=== PATIENT | female | born 1975 | race Caucasian/White ===

== ENCOUNTER → 2021-12-21 11:07 | Outpatient (BNVA) | payer OTHER, SELFPAY | PROVIDERS: Visit Provider Family Medicine | DX: Z01.812 Encounter for preprocedural laboratory examination (principal); Z20.822 Contact with and (suspected) exposure to COVID-19 | CPT/HCPCS: 87635 ==

== ENCOUNTER 2023-01-30 18:39 | Emergency (ER) | payer OTHER, SELFPAY ==
[2023-01-30 18:49] VITALS: BP 155/95; PULSE 80; RESP 16; TEMP 36.8; O2SAT 98; BMI 22.1
--- NOTE | 2023-01-30 19:35 | W.ED.FEMALGU ---
HPI - Female Genitourinary General: Chief complaint: Urogenital-Female Stated complaint: Vaginal Bleeding Time Seen by Provider: 01/30/23 18:57 Source: patient Mode of arrival: ambulatory Limitations: no limitations History of Present Illness: Patient presents to the emergency department today for evaluation treatment of bleeding with urination and low pelvic pressure. Patient states that just this afternoon she noticed a little bit of spotting when she would urinate. It quickly progressed and patient is having large amounts of bright red urine with voiding and significant urinary discomfort. She states she looked in the vaginal region and notes that her urethra appears very red and swollen. Patient only has bleeding when she urinates and denies any bleeding in her underwear. She denies any specific back pains, fevers, nausea or vomiting. Patient has no history of prolapse. Associated symptoms: Reports abdominal pain (low, suprapubic) Review of Systems General: Reports: 10 or more systems reviewed and unremarkable except in HPI and below GI: Reports: abdominal pain (low, suprapubic) : Reports: dysuria and hematuria Physical Exam Const: COMMON NORMALS: no acute distress, patient oriented x3 and alert HENMT: COMMON NORMALS: normocephalic, atraumatic, hearing grossly normal bilaterally and moist oral mucous membranes HEAD & SCALP: normocephalic and atraumatic Eye: COMMON NORMALS: Equal, round and reactive pupils present, EOMs intact bilaterally and conjunctivae normal CONJUNCTIVA: Yes conjunctivae normal PUPIL: Yes Equal, round and reactive pupils present Neck/C-Spine: COMMON NORMALS: full ROM and no JVD Lymph: LYMPHATIC: no lymphadenopathy noted Resp: COMMON NORMALS: normal respiratory effort, No retractions, No use of accessory muscles and clear to auscultation bilaterally AUSCULTATION: clear to auscultation bilaterally Cardio: COMMON NORMALS: no JVD, regular rate and regular rhythm RATE: regular rate RHYTHM: regular rhythm GI: OTHER: Patient has some mild tenderness on deep suprapubic palpation. Otherwise, nontender, normoactive bowel sounds. Abdomen is soft. : COMMON NORMALS: Yes no CVA tenderness BLADDER/KIDNEY EXAM: Yes no CVA tenderness OTHER: exam discussed/offered but not pursued by the patient and was deferred Back/Pelvis: COMMON NORMALS: no CVA tenderness, no thoracic nor lumbar tenderness and thoraco-lumbar ROM normal Extremity: COMMON NORMALS: normal to inspection, full ROM and capillary refill normal Neuro: COMMON NORMALS: patient oriented x3 SENSORIUM/ORIENTATION: Yes alert Psych: COMMON NORMALS: mental status grossly normal, Normal thought process present, cooperative, normal affect and activity/motor behavior normal THOUGHT PROCESS: Normal thought process present Skin: COMMON NORMALS: no rashes or lesions noted and no wounds GENERAL SKIN EXAM: no rashes or lesions noted Course Vital Signs: Vital signs: Vital Signs Temperature 98.2 F 01/30/23 18:49 Pulse Rate 80 01/30/23 18:49 Respiratory Rate 16 01/30/23 18:49 Blood Pressure 155/95 01/30/23 18:49 Pulse Oximetry 98 01/30/23 18:49 Oxygen Delivery Me thod 01/30/23 18:49 MDM - Female Medical Decision Making Patient presents to the ED today for worsening of hematuria. Urinalysis confirmed significant amount of blood in the urine but, no acute findings of infection. Patient is nitrite negative and only trace leukocyte Estrace. Only trace bacteria. I did discuss the case with Dr. Olivas who agrees infection is most likely not the cause of the patient's symptoms though I did encourage continuing with the urine culture that was ordered. Follow-up with urology was requested through case management. Explained to the patient that she most likely needs a cystoscopy to visualize inside her bladder. I did explain that she may have an area of bleeding in the bladder or, there may be a lesion that requires further evaluation by urology. Patient was encouraged to increase her clear fluids and, patient was provided PeriCare bottle to help with discomfort while she urinates. Discussed any urinary retention needs to be seen and evaluated here in the emergency department as it is possible her urinary clots could occlude her bladder. Differential Diagnosis Likely abdominal pain, calculus of kidney (UTI) and constipation Lab Data Laboratory Results Urine Color Red (Yellow) 01/30/23 19:13 Urine Appearance Cloudy (CLEAR) A 01/30/23 19:13 Urine pH 7 (5-7) 01/30/23 19:13 Ur Specific [place] 1.010 (1.005-1.030) 01/30/23 19:13 Urine Protein 1+ (Negative) H 01/30/23 19:13 Urine Glucose (UA) Norm (Normal) 01/30/23 19:13 Urine Ketones Negative (Negative) 01/30/23 19:13 Urine Blood 3+ (Negative) H 01/30/23 19:13 Urine Nitrate Negative (Negative) 01/30/23 19:13 Urine Bilirubin Neg (Negative) 01/30/23 19:13 Prot Sulfosalicylic Acd Negative (Negative) 01/30/23 19:13 Urine Urobilinogen Neg mg/dL (Negative) 01/30/23 19:13 Ur Leukocyte Esterase Trace (Negative) H 01/30/23 19:13 Urine RBC Too numerous to cnt /hpf (0-2) H 01/30/23 19:13 Urine WBC 15-25 /hpf (0-5) H 01/30/23 19:13 Ur Squamous Epith Cells 0-4 /hpf (0-5) H 01/30/23 19:13 Amorphous Sediment Not Reportable 01/30/23 19:13 Urine Bacteria Trace /hpf (NONE) 01/30/23 19:13 Urine HCG, Qual Negative (Negative) 01/30/23 19:13 Discharge Plan Discharge Patient Disposition: Home Clinical Impression: Hematuria Condition: Stable Discharge Orders: Discharge ED (Routine); Ordered 01/30/23 Ordered By: Marina Kent Discharge Diet: Usual diet Discharge Activity: Increase activity as tolerated Patient Instructions: Hematuria - Female Activity Restrictions/Additional Instructions: The emergency room physician on your care team this evening and myself do not find any acute concerns of infection in your urine specimen. However, we have still requested the lab perform a urine culture over the next 48 hours to see if there is any type of bacterial growth that can be cultured during that time. We have initiated a referral through case management to have you followed up with urology to further evaluate this episode of hematuria. We have given you an informational handout regarding hematuria for your reference at home. Will be very important that you stay well-hydrated. You may wish to use the PeriCare bottle while you urinate to help alleviate any discomfort. Fill the bottle with cool water and spray over your urethral opening as you urinate to help alleviate discomfort. Recommend being seen and reevaluated if you develop any fevers or, if you become unable to pass urine. Sometimes, clots from inside the bladder can obstruct the urethra and prevent you from being able to pass urine. If this occurs need to return to the emergency department for a more urgent intervention. Coding Level of Care Code ED It Technical Support Specialist for Hailey Benitez
[2023-01-30 19:40] LABS: Add Urine Microscopic? YES; Bilirubin Urine Neg (Negative); Blood Urine 3+ (Negative); Glucose Urine UA Norm (Normal); Ketones Urine Negative (Negative); Leukocyte Esterase Urine Trace (Negative); Nitrate Urine Negative (Negative); Protein Urine 1+ (Negative); Sulfosalicylic Acid Urine Negative (Negative); Urine Appearance Cloudy (CLEAR); Urine Color Red (Yellow); Urobilinogen Urine Neg (Negative); pH Urine 7 (5-7)
[2023-01-30 19:42] LABS: RBC Urine TOO NUMEROUS TO CNT /hpf (0-2)
[2023-01-30 19:48] LABS: Add Urine Culture? Yes; Bacteria Urine TRACE /hpf; Squamous Epithelial Cell Urine 0-4 /hpf (0-5); WBC Urine 15-25 /hpf (0-5)
[2023-01-30 21:28] VITALS: BP 135/95; PULSE 81; RESP 14; O2SAT 100
--- NOTE | 2023-01-31 11:33 | DCPLANNER ---
Addendum entered by Haily Eckert 02/04/23 08:50: Patient had a follow up appointment scheduled with urology - patient did attend appointment Addendum entered by Haily Eckert 02/01/23 08:32: Patient has a follow up appointment scheduled for January at 11:[address] Montalvo at urology. Clinic will call patient with appointment information. Original Note: surgical manager had message to schedule a follow up appointment for patient with urology. surgical manager sent patients information to the front office staff at urology. Patients information will be reviewed. Clinic will call patient with appointment information.
--- NOTE | 2023-02-09 13:58 | DCPLANNER ---
strategic accounts manager called patient due to no primary care physician - patient declines at this time
== END 2023-01-30 21:27 | disposition home or self-care (01) ==
PROVIDERS: Emergency Provider Physician Assistant
DX: R31.9 Hematuria, unspecified (principal)
CPT/HCPCS: 81001; 81025; 87077; 87086; 87186; 99283

== ENCOUNTER → 2023-02-03 10:28 | Outpatient (BNVA) | payer OTHER, SELFPAY | PROVIDERS: Visit Provider Urology | DX: R31.9 Hematuria, unspecified (principal); N30.80 Other cystitis without hematuria; N36.2 Urethral caruncle | CPT/HCPCS: 81003 ==

== ENCOUNTER → 2023-02-17 12:02 | Outpatient (BNVA) | payer OTHER, SELFPAY | PROVIDERS: Visit Provider Nurse Practitioner Family | DX: L30.9 Dermatitis, unspecified (principal) | CPT/HCPCS: 80053; 85025; 86618; 86666; 86757 ==

== ENCOUNTER → 2023-03-08 10:18 | Outpatient (BNVA) | payer OTHER, SELFPAY | PROVIDERS: PCP Nurse Practitioner Family; Visit Provider Urology | DX: N30.80 Other cystitis without hematuria (principal) | CPT/HCPCS: 81003 ==

== ENCOUNTER → 2023-05-04 08:53 | Outpatient (BNVA) | payer OTHER, SELFPAY | PROVIDERS: PCP Nurse Practitioner Family; Visit Provider Urology | DX: N30.80 Other cystitis without hematuria (principal) | CPT/HCPCS: 81003 ==